=== PATIENT | male | born 2000 | race Asian ===

== ENCOUNTER 2024-10-21 15:45 | Outpatient (CLI) | payer OTHER, SELFPAY | END 2024-10-21 15:46 | disposition home or self-care (01) | LOC: SCSRAD 15:45 | PROVIDERS: ATTEND Nurse Practitioner Family | DX: S09.93XA Unspecified injury of face, initial encounter (principal); M26.69 Other specified disorders of temporomandibular joint | CPT/HCPCS: 70110 ==